=== PATIENT | male | born 1965 | race Caucasian/White ===

== ENCOUNTER 2017-06-10 16:49 | Emergency (ER) | payer MEDICAID ==
[~2017-06-10] VITALS: Ht 177.8 cm; Wt 60.6 kg
[~2017-06-10 16:49] MED LIST: APIX5 PO; ARIP1TAB12 PO; SERT50 PO
[2017-06-10 16:51] VITALS: BP 114/76; PULSE 112; RESP 22; TEMP 97.9; O2SAT 95
--- NOTE | 2017-06-10 17:22 | PD ---
Physical Exam Time Seen by Provider: 17:20 Narrative 52 y/o male presents for evaluation of back pain after a fall yesterday. he is a poor historian and extremely hostile towards staff, shouting obscenities. Vital signs reviewed. Seen at triage desk. Awaiting bed placement. Data Data Last Documented VS Vital Signs Date Time Temp Pulse Resp B/P Pulse Ox O2 Delivery O2 Flow Rate FiO2 06/10/17 16:51 97.9 112 22 114/76 95 Room Air [facility] Medical Record Reviewed: Yes Supervised Visit with ANNA: Paul Parker Jun 10, 2017 17:22
== END 2017-06-10 18:26 | disposition left against medical advice (07) ==
LOC: NED 16:49
DX: M54.9 Dorsalgia, unspecified (principal); Z53.21 Procedure and treatment not carried out due to patient leaving prior to being seen by health care provider
CPT/HCPCS: 99281

== ENCOUNTER 2017-06-10 19:26 | Emergency (ER) | payer MEDICAID ==
[2017-06-10 19:29] VITALS: BP 123/76; PULSE 109; RESP 16; TEMP 98.1; O2SAT 100
== END 2017-06-10 21:39 | disposition left against medical advice (07) ==
LOC: NED 19:26
DX: R07.9 Chest pain, unspecified (principal); Z53.21 Procedure and treatment not carried out due to patient leaving prior to being seen by health care provider
CPT/HCPCS: 99281

== ENCOUNTER 2017-06-10 22:48 | Emergency (ER) | payer MEDICAID ==
[~2017-06-10] VITALS: Ht 170.2 cm; Wt 60.0 kg
[2017-06-10 22:52] VITALS: BP 109/66; PULSE 100; RESP 16; O2SAT 98
== END 2017-06-11 02:00 | disposition left against medical advice (07) ==
LOC: NED 22:48
DX: R07.9 Chest pain, unspecified (principal); Z53.21 Procedure and treatment not carried out due to patient leaving prior to being seen by health care provider
CPT/HCPCS: 99281

== ENCOUNTER 2017-06-12 17:03 | Inpatient (IN) | payer MEDICAID ==
[~2017-06-12] VITALS: Ht 177.8 cm; Wt 61.2 kg
[2017-06-12 17:32] VITALS: BP 140/79; PULSE 91; RESP 16; TEMP 97.7; O2SAT 99
[2017-06-12 18:45] VITALS: BP 140/79; PULSE 91; RESP 16; TEMP 97.7; O2SAT 99
[2017-06-12] MEDS ORDERED: traZODone HCL 50 MG TAB PO PRN (18:45)
[2017-06-12] MEDS ORDERED: LORazepam 2 MG/ML VIAL IM PRN (18:45)
[2017-06-12] MEDS ORDERED: BENZTROPINE MESYLATE 1 MG TAB PO PRN (18:45)
[2017-06-12] MEDS ORDERED: ALUMINUM/MAGNESIUM/SIMETH 30 ML CUP PO PRN (18:45)
[2017-06-12] MEDS ORDERED: MAGNESIUM HYDROXIDE SUSP 30 ML CUP PO PRN (18:45)
[2017-06-12] MEDS ORDERED: LORazepam 1 MG TAB PO PRN (18:45)
[2017-06-12] MEDS ORDERED: ACETAMINOPHEN 325 MG TAB PO PRN (18:45)
[2017-06-12] MEDS ORDERED: BENZTROPINE MESYLATE 2 MG/2 ML VIAL IM PRN (18:45)
[2017-06-13 06:20] VITALS: BP 126/73; PULSE 73; RESP 18; TEMP 97.8; O2SAT 99
[2017-06-13] MEDS ORDERED: diphenhydrAMINE HCL 50 MG/ML VIAL ONE (08:51)
[2017-06-13] MEDS ORDERED: ZIPRASIDONE MESYLATE 20 MG VIAL IM ONE ×2 (08:51→09:30)
[2017-06-13] MEDS ORDERED: NICOTINE 21 MG/24 HR PATCH T-DERMAL SCH (09:00)
[2017-06-13] MEDS ORDERED: REMOVE OLD PATCH T-DERMAL SCH (09:00)
[2017-06-13] MEDS ORDERED: diphenhydrAMINE HCL 50 MG/ML VIAL IM ONE (09:30)
--- NOTE | 2017-06-13 10:01 | HHI.HP ---
Provisional Diagnosis Admission Date Jun 12, 2017 at 17:03 Ambia I. 1. Malingering for retirement 2. Polysubstance abuse Ambia II. 1. Antisocial personality Certification of Person's Competence To Provide Express and Informed Consent I have personally examined Amandeep Bob , a person being served at [facility] on, Jun 13, 2017 10:01. Express and informed consent means consent voluntarily given in writing, by a competent person, after sufficient explanation and disclosure of the subject matter involved to enable the person to make a knowing and willful decision without any element of force, fraud, deceit, duress, or other form of constraint or coercion. This person is 18 years of age or older, is not now known to be incompetent to consent to treatment with a guardian advocate, and does not have a health care surrogate or proxy currently making medical treatment decisions. I have found this person to be one of the following: [x] Competent to provide express and informed consent, as defined above, for voluntary admission to this facility and is competent to provide express and informed consent for treatment. He/she has the consistent capacity to make well reasoned, willful, and knowing decisions concerning his or her medical or mental health treatment. The person fully and consistently understands the purpose of the admission for examination/placement and is fully capable of personally exercising all rights [place] Incompetent to provide express and informed consent to voluntary admission, and this is incompetent to provide express and informed consent to treatment. The person must be transferred to involuntary status and a petition for a guardian advocate filed with the Circuit Court. [] Refusing to provide express and informed consent to voluntary admission but is competent to provide express and informed consent for treatment. The person must be discharged or transferred to involuntary status. Form shall be completed within 24 hours of a person's arrival at the receiving facility and filed in the clinical record of each person: 1. Admitted on a voluntary basis 2. Permitted to provide express and informed consent to his/her own treatment 3. Allowed to transfer from involuntary to voluntary status 4. Prior to permitting a person to consent to his or her own treatment after having been previously found incompetent to consent to treatment. History of Present Illness Capacity: Has Capacity HPI Mr. Bob is a 52 year-old male with a history of polysubstance abuse and antisocial personality who presents in transfer from [facility] under a [facility] act. Documentation from [facility] reviewed. It appears that he presented there complaining of "suicidal ideation and depression." "Housing problems" are listed as an exacerbating factor. Reviewing our own electronic medical record, I note that the patient was admitted under my care in February 2016 with the above diagnoses. Patient seen and examined with nurse. Chart reviewed. Case discussed with nursing staff. Patient has been acting out in an antisocial fashion and demanding opiates and benzos. He was growing restive this morning and so I ordered him medicated with Geodon and Benadryl ETO. Nurse reports that the patient has been seeking aggressively for benzos and opiates and has been calling the [employer] slurs. On my evaluation patient is obnoxious and obstreperous. Antisocial personality traits are exceedingly prominent. He says that he came in to outside hospital "because I need to get me a place to stay." He is homeless. He takes no ownership whatsoever of his disruptive behavior on the unit and blames others for all of his problems. He says that some woman took off with his narcotics and benzos last , and he is seeking aggressively for these substances now. He denies any suicidal or homicidal ideation, intent or plan. He denies AVH. No evident delusions. Affect dysphoric but no other depressive or hypomanic/manic symptoms. The remainder of the psychiatric ROS is negative. I have explained to the patient that I will be discharging him from the unit today as he has no acute psychiatric issues that would benefit from general inpatient psychiatric hospitalization, and he is in agreement with this plan. He does plan to go to directly to the ED to continue to pursue his goals of obtaining retirement and getting controlled substances. Past psychiatric history: Patient reports a history of bipolar disorder. He is not currently under the care of a psychiatrist. He says that he was admitted psychiatrically a few weeks ago "because I ain't got no place to live." He denies a history of suicide attempts to me now but did describe a history of previous suicide attempts when I saw him last year. Family history: The patient denies any family history of mental illness. Chemical dependency history: The patient denies any history of abuse of drugs or alcohol but has a documented history of polysubstance use issues. Social history: Patient is homeless. Refuses to answer regarding schooling and occupation. with no children. Denies legal issues. Denies history. Denies access to guns or firearms. Review of Systems ROS Limitations: Uncooperative Except as stated in HPI: all other systems reviewed are Neg Past Psych History Psychological trauma history No reported trauma history Violence risk - others (6 mos) Denies HI. No known history of violent crime. The patient is exceedingly antisocial however and this coupled with his substance use issues confer chronic risk for violence that would not be ameliorated by inpatient psychiatric hospital stay. Violence risk - self (6 mos) Denies SI. Does have a history of suicide attempts as noted above. Patient's antisocial personality and substance use issues constitute chronic risk factors for suicide as well, but here again these risk factors would not be ameliorated by keeping the patient on the inpatient unit. He likely will make some sort of gesture or attempt in retribution or act out in some other way, but this is not a reason to keep the patient on the inpatient unit, and in fact it would be actively counter therapeutic to do so. Substance Abuse History Drugs/Alcohol past 12 months see above Past Family Social History Coded Allergies: Flexeril (Verified Allergy, Severe, TWITCHING, 06/10/17) Milk (Verified Allergy, Severe, 06/12/17) PT STATES NAUSEA, VOMITING AND Past Medical History see emr Active Scripts Sertraline Hcl (Zoloft)50 Mg Tab50 Mg PO DAILY 5 Days Ref 5 Prov:Donato Chapman MD 03/23/16 Aripiprazole 10 Mg Tab10 Mg PO DAILY 5 Days Ref 5 Prov:Donato Chapman MD 03/23/16 Apixaban (Eliquis)5 Mg Tab10 Mg PO BID 5 Days Ref 5 Prov:Donato Chapman MD 03/23/16 Current Medications Medications (Trade) Dose Ordered Sig/Alejandra Route Start Time Stop Time Status Last Admin (Ativan) 1 mg Q6H PRN PO 06/12/17 18:45 06/13/17 02:00 (Ativan Inj) 1 mg Q6H PRN IM 06/12/17 18:45 (Tylenol) 650 mg Q4H PRN PO 06/12/17 18:45 (Milk Of Magnesia Liq) 30 ml DAILY PRN PO 06/12/17 18:45 (Mag-Al Plus Susp Liq) 30 ml Q6H PRN PO 06/12/17 18:45 (Habitrol 21 Mg Patch.24 Hr) 1 patch DAILY T-DERMAL 06/13/17 09:00 (Desyrel) 50 mg HS PRN PO 06/12/17 18:45 (Cogentin) 1 mg Q12H PRN PO 06/12/17 18:45 (Cogentin Inj) 1 mg Q12H PRN IM 06/12/17 18:45 Miscellaneous Information 1 DAILY T-DERMAL 06/13/17 09:00 Patient's Strengths (min. 2) able to access clinical care. verbal. Physical Exam Physical examination completed by provider at outside hospital. On my examination today, the patient is in no acute physical distress. He does have some facial asymmetry from reported history of surgery. No stigmata of GABAergic or opiate withdrawal noted. No hand tremor, no dystonia, no dyskinesia noted. No other motoric abnormalities noted. Laboratories and vital signs reviewed: Vital Signs Vital Signs Date Time Temp Pulse Resp B/P Pulse Ox O2 Delivery O2 Flow Rate FiO2 06/13/17 06:20 97.8 73 18 126/73 99 Lab Results Labs from outside hospital reviewed: CBC unremarkable CMP K 3.3. EtOH <10 UTox Neg Mental Status Examination Patient is in hospital gown. He is somewhat disheveled but maintaining basic hygiene. He is awake and alert and oriented to person and hospital at least. No evidence of delirium. No motor abnormalities noted. Speech is loud and angry but otherwise within normal limits. Focus and concentration intent on obtaining controlled substances. Memory no obvious deficits. Mood and affect are restricted and dysphoric in the setting of frustration of his desire to obtain controlled substances. Thought process perseverative on obtaining controlled substances but otherwise linear. No loosening of associations. No delusional material elicited. Denies audiovisual hallucinations. Denies suicidal or homicidal ideation, intent or plan. Insight and judgment are poor. Assessment & Plan Problem List: (1) Malingering ICD Code: Z76.5 (2) Antisocial personality disorder ICD Code: F60.2 (3) Polysubstance abuse ICD Code: F19.10 Assessment & Plan 52-year-old male with psychiatric history as detailed above who is transferred from outside hospital under a [place] act. Patient presents today as antisocial and admits to malingering his psychiatric symptoms at outside hospital to get a place to stay as he is presently homeless. He is fixated on obtaining controlled substances and has a history of substance use issues. He is presently denying suicidal or homicidal ideation. There is no evidence of any unstable mood, anxiety or psychotic disorder in this patient at this time. He does not meet criteria for inpatient psychiatric hospitalization. It is likely that he will make some sort of gesture or attempt in retribution for us not giving him his controlled substances, but it would be actively counter therapeutic to retain the patient on the inpatient unit to try to avert this eventuality. Patient will be discharged today. Recommend outpatient psychiatric follow-up. Recommend primary care follow-up. Patient to return to psychiatric emergency room for any concerning psychiatric symptoms. No scripts on discharge. This note serves also has my discharge summary. Request HC Surrog/Guard Advoc?: No Donato Chapman MD Jun 13, 2017 10:01
== END 2017-06-13 10:25 | disposition home or self-care (01) | DRG 951 ==
LOC: H260 17:03 → H270 06-13 09:47
PROVIDERS: ADMIT Psychiatry & Neurology Psychiatry; ATTEND Psychiatry & Neurology Psychiatry
DX: Z76.5 Malingerer [conscious simulation] (principal); F60.2 Antisocial personality disorder; F19.10 Other psychoactive substance abuse, uncomplicated; Z59.0 Homelessness
CPT/HCPCS: J1200; J3486